=== PATIENT | female | born 1950 | race Caucasian/White ===

== ENCOUNTER 2016-10-30 06:01 | Emergency (ER) | payer MEDICARE, OTHER ==
[2016-10-30 06:27] VITALS: BP 121/66; PULSE 82; RESP 16; TEMP 98; O2SAT 99
--- NOTE | 2016-10-30 06:28 | ED PDOC ---
HPI: Headache Time Seen by Provider: 10/30/16 06:26 Chief Complaint (Nursing): Headache Chief Complaint (Provider): headache History Per: Patient History/Exam Limitations: no limitations Onset/Duration Of Symptoms: Hrs Current Symptoms Are (Timing): Still Present Additional Complaint(s): 66yo female with PMHx including HTN, anxiety presents to the ED with c/o headache since 1999 last night. Patient reports there was a gas leak in her house and thought it may be carbon monoxide. She subsequently developed a headache and became concerned. Took medication she has for leg pain and made headache resolve. No other medical complaints. Past Medical History Reviewed: Historical Data, Nursing Documentation, Vital Signs - Medical History PMH: Anxiety, Gall Bladder Disease, HTN Denies: Chronic Kidney Disease - Surgical History Surgical History: Cholecystectomy - Family History Family History: States: No Known Family Hx - Immunization History Hx Tetanus Toxoid Vaccination: No Hx Influenza Vaccination: No Hx Pneumococcal Vaccination: No - Home Medications Home Medications: Ambulatory Orders Medication Instructions Recorded Famotidine [Pepcid] 20 mg PO DAILY #20 tab 05/27/16 Ondansetron [Zofran Odt] 4 mg PO TID #10 odt 05/27/16 Ibuprofen [Motrin] 600 mg PO Q6 #20 tab 06/03/16 oxyCODONE/Acetaminophen [Percocet 1 ea PO Q6 PRN #5 tab 06/03/16 5/325 mg Tab] - Allergies Allergies/Adverse Reactions: Allergies Allergy/AdvReac Type Severity Reaction Status Date / Time antibiotics Allergy Uncoded 05/27/16 01:58 Review of Systems ROS Statement: Except As Marked, All Systems Reviewed And Found Negative Neurological: Positive for: Headache Physical Exam - Reviewed Nursing Documentation Reviewed: Yes Vital Signs Reviewed: Yes - Physical Exam Appears: Positive for: Well, No Acute Distress Head Exam: Positive for: ATRAUMATIC, NORMAL INSPECTION, NORMOCEPHALIC Skin: Positive for: Normal Color, Warm, Dry Eye Exam: Positive for: Normal appearance, EOMI, PERRL ENT: Positive for: Normal ENT Inspection Neck: Positive for: Normal, Painless ROM, Supple Cardiovascular/Chest: Positive for: Regular Rate, Rhythm. Negative for: Murmur , Tachycardia Respiratory: Positive for: Normal Breath Sounds. Negative for: Wheezing, Respiratory Distress Gastrointestinal/Abdominal: Positive for: Normal Exam, Bowel Sounds, Soft. Negative for: Tenderness Back: Positive for: Normal Inspection Extremity: Positive for: Normal ROM. Negative for: Deformity, Swelling Neurologic/Psych: Positive for: Alert, Oriented. Negative for: Motor/Sensory Deficits Medical Decision Making Medical Decision Makin: Impression: exposure to gas vs. carbon monoxide Plan: ABG reassess Patient s/o to Dr. Kelley at 0700 pending ABG and re-eval. Scribe Attestation: Documented by Gilma Lagos acting as a scribe for Ofe Del Cid MD. Provider Scribe Attestation: All medical record entries made by the Scribe were at my direction and personally dictated by me. I have reviewed the chart and agree that the record accurately reflects my personal performance of the history, physical exam, medical decision making, and the department course for this patient. I have also personally directed, reviewed, and agree with the discharge instructions and disposition. Disposition - Clinical Impression Clinical Impression: Headache, Exposure to natural gas - Patient ED Disposition Is Patient to be Admitted: Transfer of Care Counseled Patient/Family Regarding: Studies Performed, Diagnosis - Disposition Disposition: Transfer of Care Disposition Time: 07:00 Condition: FAIR Patient Signed Over To: Blaine Kelley Handoff Comments: pending ABG and re-eval
--- NOTE | 2016-10-30 07:11 | ED PDOC ---
- ECG O2 Sat by Pulse Oximetry: 99 Medical Decision Making Medical Decision Makin signed over by Claude Del Cid MD pending ABG, reeval. Disposition - Clinical Impression Clinical Impression: Headache, Natural gas exposure - POA Present On Arrival: None - Disposition Referrals: Zheng Ibarra MDE [Primary Care Provider] - Disposition: Routine/Home Disposition Time: 08:24 Condition: FAIR Instructions: Smoke Inhalation (ED) Additional Comments - Additional Comments Additional Comments: Scribe Attestation: Documented by Kelvin Del Rio acting as a scribe for Blaine Kelley MD. Provider Scribe Attestation: All medical record entries made by the Scribe were at my direction and personally dictated by me. I have reviewed the chart and agree that the record accurately reflects my personal performance of the history, physical exam, medical decision making, and the department course for this patient. I have also personally directed, reviewed, and agree with the discharge instructions and disposition.
[2016-10-30 07:56] LABS: VENOUS BLOOD GAS BASE EXCESS 3.7 mmol/L (0.0-2.0); VENOUS BLOOD GAS PCO2 60 mmHg (40-60); VENOUS BLOOD PH 7.33 (7.32-7.43)
[2016-10-30 09:14] LABS: BASO % 0.2 % (0.0-2.0); EOS # 0.1 K/uL (0.0-0.7); HEMATOCRIT 43.1 % (34.0-47.0); LYMPH # 1.8 K/uL (1.0-4.3); LYMPH % 18.5 % (20.0-40.0); MEAN CELL VOLUME 86.9 fl (81.0-99.0); MEAN CORPUSCULAR HEMOGLOBIN 29.1 pg (27.0-31.0); MEAN CORPUSCULAR HGB CONC 33.5 g/dL (33.0-37.0); MEAN PLATELET VOLUME 8.1 fl (7.2-11.7); MONO # 0.4 K/uL (0.0-0.8); MONO % 4.6 % (0.0-10.0); NEUT # 7.3 K/uL (1.8-7.0); NEUT % 75.7 % (50.0-75.0); NRBC % 0.1 % (0.0-0.0); WHITE BLOOD COUNT 9.6 K/uL (4.8-10.8)
[2016-10-30 09:21] LABS: ALB/GLOB RATIO 1.2 (1.0-2.1); ALKALINE PHOSPHATASE 69 U/L (38-126); ALT/SGPT 35 U/L (9-52); AST/SGOT 24 U/L (14-36); BILIRUBIN,TOTAL 0.6 mg/dl (0.2-1.3); BLOOD UREA NITROGEN 16 mg/dl (7-17); CALCIUM 9.5 mg/dL (8.4-10.2); CARBON DIOXIDE 26 mmol/L (22-30); CHLORIDE 106 mmol/L (98-107); GFR AFRICAN-AMERICAN > 60; GLUCOSE,RANDOM 84 mg/dL (65-105); POTASSIUM 3.9 MMOL/L (3.6-5.0); SODIUM 146 mmol/l (132-148); TOTAL PROTEIN 7.8 G/DL (6.3-8.2)
== END 2016-10-30 08:36 | disposition home or self-care (01) ==
LOC: H.ER 06:01
DX: R51 Headache (principal); Z57.5 Occupational exposure to toxic agents in other industries; I10 Essential (primary) hypertension

== ENCOUNTER 2018-01-07 08:45 | Inpatient (IN) | payer MEDICARE, OTHER ==
[2018-01-07] MEDS ORDERED: Oxycodone/Acetaminophen 5/325 mg Tab PO STA ×2 (09:36→14:19)
[2018-01-07] MEDS ORDERED: Oxycodone/Acetaminophen 5/325 mg Tab ONE (09:40)
--- NOTE | 2018-01-07 09:44 | ED PDOC ---
HPI: General Adult Time Seen by Provider: 01/07/18 09:07 Chief Complaint (Nursing): Upper Extremity Problem/Injury Chief Complaint (Provider): Upper Extremity Problem/Injury History Per: Patient History/Exam Limitations: no limitations Onset/Duration Of Symptoms: Hrs (x 2) Current Symptoms Are (Timing): Still Present Additional Complaint(s): 67 year old female with a history of HTN presents to the ED s/p mechanical fall complaining of right shoulder, wrist,foot and neck pain since 07:45 this morning. Patient reports she was painting on a small ladder when she lost her balance and fell off. She is able to ambulate on foot. Denies anti coagulant use , LOC, dizziness prior to fall, back pain and head injury. PMD: Dr. Liban Romero Past Medical History Reviewed: Historical Data, Nursing Documentation, Vital Signs Vital Signs: Last Vital Signs Temp 97.9 F 01/07/18 14:00 Pulse 81 01/07/18 14:00 Resp 14 01/07/18 14:00 BP 112/68 01/07/18 14:00 Pulse Ox 98 01/07/18 13:49 - Medical History PMH: Anxiety, Gall Bladder Disease, HTN Denies: Chronic Kidney Disease - Surgical History Surgical History: Cholecystectomy Other surgeries: hysterectomy and lipoid removal - Family History Family History: States: Unknown Family Hx - Immunization History Hx Tetanus Toxoid Vaccination: No Hx Influenza Vaccination: No Hx Pneumococcal Vaccination: No - Home Medications Home Medications: Ambulatory Orders Medication Instructions Recorded Alprazolam [Xanax] 0.5 mg PO Q12 PRN 01/07/18 Ibuprofen [Motrin Tab] 600 mg PO Q12 PRN 01/07/18 Lisinopril/Hydrochlorothiazide 1 tab PO DAILY 01/07/18 [Lisinopril-Hctz 10-12.5 mg Tab] - Allergies Allergies/Adverse Reactions: Allergies Allergy/AdvReac Type Severity Reaction Status Date / Time antibiotics Allergy Uncoded 05/27/16 01:58 Review of Systems ROS Statement: Except As Marked, All Systems Reviewed And Found Negative Musculoskeletal: Positive for: Neck Pain, Shoulder Pain (right ), Arm Pain ( wrist and forearm), Foot Pain (posterior ankle ) Physical Exam - Reviewed Nursing Documentation Reviewed: Yes Vital Signs Reviewed: Yes - Physical Exam Appears: Positive for: Non-toxic, No Acute Distress Head Exam: Positive for: ATRAUMATIC, NORMAL INSPECTION, NORMOCEPHALIC Skin: Positive for: Normal Color, Warm, Dry Eye Exam: Positive for: EOMI, Normal appearance, PERRL Neck: Positive for: Normal, Painless ROM, Supple Cardiovascular/Chest: Positive for: Regular Rate, Rhythm. Negative for: Murmur Respiratory: Positive for: Normal Breath Sounds. Negative for: Respiratory Distress Pulses-Radial (L): 2+ Pulses-Radial (R): 2+ Gastrointestinal/Abdominal: Positive for: Normal Exam, Soft. Negative for: Tenderness Extremity: Positive for: Normal ROM (fingers on right hadn are moving properly) , Tenderness (in posterior malleolus), Swelling (swelling and tenderness to right distal dorsum, forearm and wrist), Other (limited ROm in wrist secondary to pain). Negative for: Deformity (deformity and swelling in foot, wrist and right shoulder ) Neurologic/Psych: Positive for: Alert, Oriented. Negative for: Motor/Sensory Deficits - ECG O2 Sat by Pulse Oximetry: 98 Medical Decision Making Medical Decision Making: Time; 09:36 Impression; s/p mechanical fall. wrist injury, right shoulder injury, right foot injury. Differential diagnoses include but are not limited to: right distal forearm fracture, less likely wrist fracture or dislocation. Initial Plan: --Percocet 1 tab PO --Right shoulder x-ray --Right wrist x-ray --Right ankle x-ray Wrist x-ray reveals comminuted distal radial fracture, minimally displaced as well as a ulnar styloid fracture. Ankle x-ray and shoulder x-ray are negative for any significant abnormalities or displacements. Ankle x-ray FINDINGS: BONES: No acute fracture. JOINTS: Ankle mortise maintained. Talar dome intact SOFT TISSUES: Normal. OTHER FINDINGS: Achilles enthesophyte. Small inferior plantar calcaneal spur. IMPRESSION: No demonstrated acute fracture or dislocation. Shoulder x-ray FINDINGS: BONES: No acute fracture. JOINTS: Mild acromioclavicular joint degenerative change. SOFT TISSUES: Normal. OTHER FINDINGS: None. IMPRESSION: No demonstrated fracture or dislocation. Mild acromioclavicular joint degenerative changes. Wrist x-ray FINDINGS: BONES: Comminuted, impacted fracture of the distal radius with extension to the radiocarpal articulation. Minimally displaced ulnar styloid fracture. JOINTS: Normal. No dislocation. SOFT TISSUES: Circumferential wrist soft tissue swelling. OTHER FINDINGS: None. IMPRESSION: Comminuted, impacted intra-articular distal radial fracture. Minimally displaced ulnar styloid fracture. Time; 10:30 --Ct Upper extremity --Dr. Betancur was called for consult. Time: 12:31 --Spoke to Dr. Betancur and sent results of x-rays. Upper Extremity CT FINDINGS: There is a comminuted fracture of the distal right radius which is articular with the major fracture fragment displaced in the volar direction as well as carpal bones with that major fragment, indicating a volar Lowry's fracture. There is an avulsion fracture through the ulnar styloid process, minimally distally displaced. The remainder of the right radius is intact without fracture swells the ulna. No significant acute elbow findings with the carpal bones intact diffusely. Local soft tissue edema is prominent at the fracture site. IMPRESSION: Volar Lowry's fracture distal right radius with limited ulnar styloid fracture. Time: 13:08 --Dr. Betancur recommends admission. --Patient will be admitted to hospitalist, Dr. Montejo. Diagnosis is distal forearm fracture. Scribe Attestation: Documented by Winnie Smyth, acting as a scribe for Ofe Pederson MD Provider Scribe Attestation: All medical record entries made by the Scribe were at my direction and personally dictated by me. I have reviewed the chart and agree that the record accurately reflects my personal performance of the history, physical exam, medical decision making, and the department course for this patient. I have also personally directed, reviewed, and agree with the discharge instructions and disposition. Disposition - Clinical Impression Clinical Impression: Right forearm fracture - Patient ED Disposition Is Patient to be Admitted: Yes Discussed With : Stas Montejo Doctor Will See Patient In The: ED Counseled Patient/Family Regarding: Studies Performed, Diagnosis - Disposition Disposition Time: 13:10 Condition: FAIR - Pt Status Changed To: Hospital Disposition Of: Inpatient - Admit Certification Admit to Inpatient:: After my assessment, the patient will require hospitalization for at least two midnights. This is because of the severity of symptoms shown, intensity of services needed, and/or the medical risk in this patient being treated as an outpatient. - POA Present On Arrival: Falls Or Trauma
--- NOTE | 2018-01-07 10:44 | RAD ---
PROCEDURE: Right Ankle Radiographs. HISTORY: ankle pain injury COMPARISON: None FINDINGS: BONES: No acute fracture. JOINTS: Ankle mortise maintained. Talar dome intact SOFT TISSUES: Normal. OTHER FINDINGS: Achilles enthesophyte. Small inferior plantar calcaneal spur. IMPRESSION: No demonstrated acute fracture or dislocation.
--- NOTE | 2018-01-07 10:46 | RAD ---
PROCEDURE: Right Wrist Radiographs. HISTORY: right wrist swelling injury COMPARISON: Right wrist radiographs dated 06/03/2016. FINDINGS: BONES: Comminuted, impacted fracture of the distal radius with extension to the radiocarpal articulation. Minimally displaced ulnar styloid fracture. JOINTS: Normal. No dislocation. SOFT TISSUES: Circumferential wrist soft tissue swelling. OTHER FINDINGS: None. IMPRESSION: Comminuted, impacted intra-articular distal radial fracture. Minimally displaced ulnar styloid fracture.
--- NOTE | 2018-01-07 10:47 | RAD ---
PROCEDURE: Radiographs of the Right Shoulder HISTORY: shoulder pain injury COMPARISON: No prior. FINDINGS: BONES: No acute fracture. JOINTS: Mild acromioclavicular joint degenerative change. SOFT TISSUES: Normal. OTHER FINDINGS: None. IMPRESSION: No demonstrated fracture or dislocation. Mild acromioclavicular joint degenerative changes.
--- NOTE | 2018-01-07 12:52 | CT ---
PROCEDURE: RIGHT UPPER EXTREMITY CT WITHOUT CONTRAST HISTORY: right distal forearm fracture COMPARISON: Right wrist radiographs 01/07/2018. TECHNIQUE: A volumetric CT acquisition was performed through the right upper extremity from the right elbow to the proximal metacarpal bones without intravenous contrast. Reformatted datasets provided sagittal axial coronal planes including 3D cervix rendered series. FINDINGS: There is a comminuted fracture of the distal right radius which is articular with the major fracture fragment displaced in the volar direction as well as carpal bones with that major fragment, indicating a volar Lowry's fracture. There is an avulsion fracture through the ulnar styloid process, minimally distally displaced. The remainder of the right radius is intact without fracture swells the ulna. No significant acute elbow findings with the carpal bones intact diffusely. Local soft tissue edema is prominent at the fracture site. IMPRESSION: Volar Lowry's fracture distal right radius with limited ulnar styloid fracture.
--- NOTE | 2018-01-07 14:16 | RAD ---
HISTORY: medical COMPARISON: No prior. FINDINGS: LUNGS: No active pulmonary disease. PLEURA: Elevation/ eventration of the left hemidiaphragm. No significant pleural effusion identified, no pneumothorax apparent. CARDIOVASCULAR: Atherosclerotic aortic calcifications. Cardiomediastinal silhouette within normal limits. OSSEOUS STRUCTURES: Degenerative changes. VISUALIZED UPPER ABDOMEN: Normal. OTHER FINDINGS: None. IMPRESSION: No active disease.
--- NOTE | 2018-01-07 14:34 | CP.PCM.HP ---
History of Present Illness - History of Present Illness History of Present Illness: 67 yo female with history of HTN and Sleep Apnea came in because of pain on the right shoulder, wrist, foot and neck after falling this morning on a step ladder while painting a wall. Denied LOC or head injury. Present on Admission - Present on Admission Any Indicators Present on Admission: No History of DVT/PE: No History of Uncontrolled Diabetes: No Urinary Catheter: No Decubitus Ulcer Present: No Review of Systems - Review of Systems All systems: reviewed and no additional remarkable complaints except (aside from those mentioned above, 12 point system review were negative by me) Past Patient History - Tetanus Immunizations Tetanus Immunization: Unknown - Past Medical History & Family History Past Family History: Reviewed and not pertinent - Past Social History Smoking Status: Heavy Smoker > 10 Cigarettes Daily Chewing Tobacco Use: No Cigar Use: No Alcohol: None Drugs: Denies Home Situation {Lives}: With Family - CARDIAC Hx Hypertension: Yes - PULMONARY Hx Sleep Apnea: Yes - NEUROLOGICAL Hx Neurological Disorder: No - RENAL Hx Chronic Kidney Disease: No - GASTROINTESTINAL Hx Gall Bladder Disease: Yes - GENITOURINARY/GYNECOLOGICAL Other/Comment: hysterectomy - PSYCHIATRIC Hx Anxiety: Yes - SURGICAL HISTORY Hx Surgeries: Yes Hx Cholecystectomy: Yes Hx Hysterectomy: Yes - ANESTHESIA Hx Anesthesia: Yes Hx Anesthesia Reactions: No Hx Malignant Hyperthermia: No Meds Allergies/Adverse Reactions: Allergies Allergy/AdvReac Type Severity Reaction Status Date / Time antibiotics Allergy Uncoded 05/27/16 01:58 Physical Exam - Constitutional Appears: No Acute Distress - Head Exam Head Exam: ATRAUMATIC - Eye Exam Eye Exam: absent: Scleral icterus - ENT Exam ENT Exam: Mucous Membranes Moist - Neck Exam Neck exam: Negative for: Meningismus - Respiratory Exam Respiratory Exam: absent: Rales, Rhonchi, Wheezes, Respiratory Distress - Cardiovascular Exam Cardiovascular Exam: REGULAR RHYTHM, +S1, +S2 - GI/Abdominal Exam GI & Abdominal Exam: Soft. absent: Tenderness - Rectal Exam Rectal Exam: Deferred - Extremities Exam Extremities exam: Positive for: joint swelling (right wrist swelling with some deformity). Negative for: full ROM (limkited ROM of the right wrist) - Back Exam Back exam: absent: tenderness - Neurological Exam Neurological exam: Alert, Oriented x3 - Psychiatric Exam Psychiatric exam: Normal Affect - Skin Skin Exam: Dry, Intact Results - Vital Signs Recent Vital Signs: Last Vital Signs Temp 97.9 F 01/07/18 13:30 Pulse 81 01/07/18 13:30 Resp 14 01/07/18 13:30 BP 112/68 01/07/18 13:30 Pulse Ox 98 01/07/18 13:49 Assessment & Plan - Assessment and Plan (Free Text) Assessment: 67 yo female with history of HTN and Sleep Apnea came in because of pain on the right shoulder, wrist, foot and neck after falling this morning on a step ladder while painting a wall. Denied LOC or head injury. 1. Right Wrist Fracture Xray showed comminuted, impacted fracture of the distal radius Dr Betancur on consult for surgery in am prior to cardiac clearance from Dr Milan 2. HTN BP stable continue Lisinopril/HCTZ 3. Sleep Apnea BIPAP at bedtime
[2018-01-07 15:10] LABS: BASO % 0.3 % (0.0-2.0); EOS % 0.4 % (0.0-4.0); HEMOGLOBIN 13.5 g/dL (12.0-16.0); LYMPH # 1.8 K/uL (1.0-4.3); LYMPH % 19.6 % (20.0-40.0); MEAN CELL VOLUME 87.1 fl (81.0-99.0); MEAN CORPUSCULAR HEMOGLOBIN 29.5 pg (27.0-31.0); MEAN CORPUSCULAR HGB CONC 33.8 g/dL (33.0-37.0); MEAN PLATELET VOLUME 7.7 fl (7.2-11.7); MONO # 0.5 K/uL (0.0-0.8); NEUT # 6.7 K/uL (1.8-7.0); NEUT % 74.7 % (50.0-75.0); NRBC % 0.1 % (0.0-0.0); RBC 4.57 Mil/uL (3.80-5.20); RED CELL DISTRIBUTION WIDTH 14.6 % (11.5-14.5)
[2018-01-07 15:20] LABS: BLOOD UREA NITROGEN 22 mg/dl (7-17); CALCIUM 9.5 mg/dL (8.4-10.2); GFR AFRICAN-AMERICAN > 60; GFR NON-AFRICAN AMERICAN 55
--- NOTE | 2018-01-07 15:22 | CP.PCM.CON ---
History of Present Illness - History of Present Illness History of Present Illness: Orthopedic consult Patient is a 67 y/o LHD female with PMH of HTN, hyperlipidemia and sleep apnea presents to the ER c/o right wrist pain. She describes falling off the third step of her ladder while painting in her home, landing on her right outstretched hand. She sustained a right wrist fracture and Dr. Betancur was consulted for orthopedic evaluation. Currently her pain is moderate in severity , dull and aching in quality. The pain is located diffuse about the wrist and worsens with any movement of the RUE. It is associated with moderate swelling. The pain is alleviated with rest. She denies any radiation of pain, numbness or tingling. She also denies CP/SOB/N/V/D/fever/dysuria/melena. She takes ibuprofen frequently for chronic back issues, her last dose was yesterday. Review of Systems - Review of Systems All systems: reviewed and no additional remarkable complaints except Review of Systems: as per HPI Past Patient History - Tetanus Immunizations Tetanus Immunization: Unknown - Past Medical History & Family History Past Family History: Reviewed and not pertinent - Past Social History Smoking Status: Heavy Smoker > 10 Cigarettes Daily Chewing Tobacco Use: No Cigar Use: No Alcohol: None Drugs: Denies Home Situation {Lives}: With Family - CARDIAC Hx Hypertension: Yes - PULMONARY Hx Sleep Apnea: Yes - NEUROLOGICAL Hx Neurological Disorder: No - HEENT Hx HEENT Problems: No - RENAL Hx Chronic Kidney Disease: No - ENDOCRINE/METABOLIC Hx Endocrine Disorders: No - HEMATOLOGICAL/ONCOLOGICAL Hx Blood Disorders: No - INTEGUMENTARY Hx Dermatological Problems: No - MUSCULOSKELETAL/RHEUMATOLOGICAL Hx Musculoskeletal Disorders: No - GASTROINTESTINAL Hx Gall Bladder Disease: Yes - GENITOURINARY/GYNECOLOGICAL Other/Comment: hysterectomy - PSYCHIATRIC Hx Anxiety: Yes - SURGICAL HISTORY Hx Cholecystectomy: Yes Hx Hysterectomy: Yes ([facility]) - ANESTHESIA Hx Anesthesia: Yes Hx Anesthesia Reactions: No Hx Malignant Hyperthermia: No Meds Allergies/Adverse Reactions: Allergies Allergy/AdvReac Type Severity Reaction Status Date / Time antibiotics Allergy Uncoded 05/27/16 01:58 Physical Exam - Constitutional Appears: Well, No Acute Distress - Head Exam Head Exam: ATRAUMATIC, NORMOCEPHALIC - Eye Exam Eye Exam: EOMI, Normal appearance, PERRL - ENT Exam ENT Exam: Mucous Membranes Moist, Normal Exam - Respiratory Exam Respiratory Exam: Clear to Auscultation Bilateral, NORMAL BREATHING PATTERN - Cardiovascular Exam Cardiovascular Exam: REGULAR RHYTHM - GI/Abdominal Exam GI & Abdominal Exam: Normal Bowel Sounds, Soft - Extremities Exam Additional comments: R wrist: + diffuse tenderness about wrist, + guarding, + mod swelling at wrist, no lesions sensation intact MN/UN/RN motor intact MN/UN/RN 2 sec cap refill all fingers comps soft NT L wrist: no swelling, no tenderness, no lesions sensation intact MN/UN/RN motor intact MN/UN/RN 2 sec cap refill all fingers comps soft NT - Neurological Exam Neurological exam: Alert, Oriented x3 - Psychiatric Exam Psychiatric exam: Normal Affect, Normal Mood - Skin Skin Exam: Normal Color, Warm Results - Vital Signs Recent Vital Signs: Last Vital Signs Temp 97.9 F 01/07/18 14:00 Pulse 81 01/07/18 14:00 Resp 14 01/07/18 14:00 BP 112/68 01/07/18 14:00 Pulse Ox 98 01/07/18 15:15 - Labs Result Diagrams: 01/07/18 15:00 01/07/18 15:00 Labs: Laboratory Results - last 24 hr 01/07/18 01/07/18 15:00 15:00 WBC 9.0 RBC 4.57 Hgb 13.5 Hct 39.8 MCV 87.1 MCH 29.5 MCHC 33.8 RDW 14.6 H Plt Count 352 MPV 7.7 Neut % (Auto) 74.7 Lymph % (Auto) 19.6 L [place] % (Auto) 5.0 Eos % (Auto) 0.4 Baso % (Auto) 0.3 Neut # (Auto) 6.7 Lymph # (Auto) 1.8 [place] # (Auto) 0.5 Eos # (Auto) 0.0 Baso # (Auto) 0.0 Sodium 144 Potassium 3.7 Chloride 105 Carbon Dioxide 25 Anion Gap 18 BUN 22 H Creatinine 1.0 Est GFR ( Amer) > 60 Est GFR (Non-Af Amer) 55 Random Glucose 96 Calcium 9.5 Assessment & Plan (1) Fracture of right distal radius Assessment and Plan: Patient is a 67 y/o female with a right commminuted intra-articular distal radius and ulnar styloid fracture -Dr. Betancur proposes a right wrist fracture open reduction internal fixation in [place] tomorrow -NPO pMN -medical/cardiac clearance -long arm splint applied -ice and elevation -NWB RUE -above d/w Dr. Betancur in agreement Status: Acute (2) Fracture of styloid process of right ulna Status: Acute - Date & Time Date: 01/07/18 Time: 14:00 Procedures - Time-Out Type of Procedure: Application of long arm splint Site of Procedure: R wrist Correct Patient: Yes Correct Procedure: Yes Correct Site Marked: Yes PA/Tech: Kris Blanchard - Splinting Location: Right wrist Hand-Made Type: orthoglass Splint: sugar-tong Pre-Proc Neuro Vasc Exam: normal Post-Proc Neuro Vasc Exam: normal Radiology Interpretation - Radiation Protection Technician Radiation Protection Technician:: Radiologist - Notes: Notes:: Accession No. : [id number] Patient Name / ID : BRIDGER PONCE I / [id number] Exam Date : 01/07/2018 09:58:55 ( Approved ) Study Comment : Sex / Age : F / 67Y Creator : Raymond Esteban MD Dictator : Raymond Esteban MD Well Service Derrick Worker : Principal Android Developer : Raymond Esteban MD Approver2 : Report Date : 01/07/2018 10:44:55 My Comment : PROCEDURE: Right Wrist Radiographs. HISTORY: right wrist swelling injury COMPARISON: Right wrist radiographs dated 06/03/2016. FINDINGS: BONES: Comminuted, impacted fracture of the distal radius with extension to the radiocarpal articulation. Minimally displaced ulnar styloid fracture. JOINTS: Normal. No dislocation. SOFT TISSUES: Circumferential wrist soft tissue swelling. OTHER FINDINGS: None. IMPRESSION: Comminuted, impacted intra-articular distal radial fracture. Minimally displaced ulnar styloid fracture. - Radiology Interpretation #2 Interpretation: Accession No. : [id number] Patient Name / ID : BRIDGER PONCE I / [id number] Exam Date : 01/07/2018 11:20:41 ( Addendum_Approved ) Study Comment : Sex / Age : F / 67Y Creator : Suhas Batista MD Dictator : Suhas Batista MD Well Service Derrick Worker : Principal Android Developer : Suhas Batista MD Approver2 : Report Date : 01/07/2018 12:50:20 My Comment : ADDENDUM: Contrast Dose: None Radiation dose:Total exam DLP = 225.25 mGy-cm. This CT exam was performed using one or more of the following dose reduction techniques: Automated exposure control, adjustment of the mA and/or kV according to patient size, and/or use of iterative reconstruction technique. [ Addendum Report Added by Suhas Batista MD at 01/07/2018 12:52:40 ] PROCEDURE: RIGHT UPPER EXTREMITY CT WITHOUT CONTRAST HISTORY: right distal forearm fracture COMPARISON: Right wrist radiographs 01/07/2018. TECHNIQUE: A volumetric CT acquisition was performed through the right upper extremity from the right elbow to the proximal metacarpal bones without intravenous contrast. Reformatted datasets provided sagittal axial coronal planes including 3D cervix rendered series. FINDINGS: There is a comminuted fracture of the distal right radius which is articular with the major fracture fragment displaced in the volar direction as well as carpal bones with that major fragment, indicating a volar Lowry's fracture. There is an avulsion fracture through the ulnar styloid process, minimally distally displaced. The remainder of the right radius is intact without fracture swells the ulna. No significant acute elbow findings with the carpal bones intact diffusely. Local soft tissue edema is prominent at the fracture site. IMPRESSION: Volar Lowry's fracture distal right radius with limited ulnar styloid fracture.
[2018-01-07 15:26] LABS: INR 1.1 (0.9-1.2); PARTIAL THROMBOPLASTIN TIME 30.4 Seconds (25.6-37.1)
[2018-01-07] MEDS ORDERED: Oxycodone/Acetaminophen 5/325 mg Tab PO PRN (16:23)
--- NOTE | 2018-01-07 18:37 | CP.PCM.CON ---
History of Present Illness - History of Present Illness History of Present Illness: THE PATIENT IS A 67 YEAR OLD FEMALE WHO FELL OFF A STEP LADDER WHILE PAINTING AND SUSTAINED A RIGHT WRIST FRACTURE. CARDIOLOGY WAS ASKED TO SEE PER PRE- OPERATIVELY. SHE ALSO HAS A HISTORY OF HYPERTENSION TREATED WITH LISINOPRIL, HYPERLIPIDEMIA TREATED BY DIET AND SLEEP APNEA THAT SHE USES A MASK FOR. SHE DENIES ANY SYNCOPE, DIZZINESS, CHEST PAIN OR PALPITATIONS. SHE DENIES ANY KNOWN HEART PROBLEMS. Past Patient History - Tetanus Immunizations Tetanus Immunization: Unknown - Past Medical History & Family History Past Family History: Reviewed and not pertinent - Past Social History Smoking Status: Heavy Smoker > 10 Cigarettes Daily Chewing Tobacco Use: No Cigar Use: No Alcohol: None Drugs: Denies Home Situation {Lives}: With Family - CARDIAC Hx Hypertension: Yes - PULMONARY Hx Sleep Apnea: Yes - NEUROLOGICAL Hx Neurological Disorder: No - HEENT Hx HEENT Problems: No - RENAL Hx Chronic Kidney Disease: No - ENDOCRINE/METABOLIC Hx Endocrine Disorders: No - HEMATOLOGICAL/ONCOLOGICAL Hx Blood Disorders: No - INTEGUMENTARY Hx Dermatological Problems: No - MUSCULOSKELETAL/RHEUMATOLOGICAL Hx Musculoskeletal Disorders: No - GASTROINTESTINAL Hx Gall Bladder Disease: Yes - GENITOURINARY/GYNECOLOGICAL Other/Comment: hysterectomy - PSYCHIATRIC Hx Anxiety: Yes - SURGICAL HISTORY Hx Cholecystectomy: Yes Hx Hysterectomy: Yes ([facility]) - ANESTHESIA Hx Anesthesia: Yes Hx Anesthesia Reactions: No Hx Malignant Hyperthermia: No Meds Allergies/Adverse Reactions: Allergies Allergy/AdvReac Type Severity Reaction Status Date / Time antibiotics Allergy Uncoded 05/27/16 01:58 - Medications Medications: Current Medications Alprazolam (Xanax) 0.5 mg PO Q12 PRN PRN Reason: Anxiety Hydrochlorothiazide (Microzide) 12.5 mg PO DAILY [facility] Lisinopril (Zestril) 10 mg PO DAILY [facility] Oxycodone/Acetaminophen (Percocet 5/325 Mg Tab) 1 tab PO Q4 PRN PRN Reason: Pain, moderate (4-7) Stop: 01/10/18 16:24 Physical Exam - Respiratory Exam Respiratory Exam: Clear to Auscultation Bilateral - Cardiovascular Exam Cardiovascular Exam: REGULAR RHYTHM, +S1, +S2 - Extremities Exam Additional comments: RIGHT WRIST IN A BANDAGE - Additional Findings Additional findings: EKG SINUS RHYTHM CXR NAD X-RAYS OF RIGHT WRIST WITH DISTAK RADIAL FRACTURE LABS NOTED Results - Vital Signs Recent Vital Signs: Last Vital Signs Temp 97.9 F 01/07/18 14:00 Pulse 81 01/07/18 14:00 Resp 14 01/07/18 14:00 BP 112/68 01/07/18 14:00 Pulse Ox 98 01/07/18 15:15 - Labs Result Diagrams: 01/07/18 15:00 01/07/18 15:00 Labs: Laboratory Results - last 24 hr 01/07/18 01/07/18 01/07/18 15:00 15:00 15:00 WBC 9.0 RBC 4.57 Hgb 13.5 Hct 39.8 MCV 87.1 MCH 29.5 MCHC 33.8 RDW 14.6 H Plt Count 352 MPV 7.7 Neut % (Auto) 74.7 Lymph % (Auto) 19.6 L [place] % (Auto) 5.0 Eos % (Auto) 0.4 Baso % (Auto) 0.3 Neut # (Auto) 6.7 Lymph # (Auto) 1.8 [place] # (Auto) 0.5 Eos # (Auto) 0.0 Baso # (Auto) 0.0 PT 12.0 INR 1.1 APTT 30.4 Sodium 144 Potassium 3.7 Chloride 105 Carbon Dioxide 25 Anion Gap 18 BUN 22 H Creatinine 1.0 Est GFR ( Amer) > 60 Est GFR (Non-Af Amer) 55 POC Glucose (mg/dL) Random Glucose 96 Calcium 9.5 Blood Type Antibody Screen BBK History Checked 01/07/18 01/07/18 15:23 16:00 WBC RBC Hgb Hct MCV MCH MCHC RDW Plt Count MPV Neut % (Auto) Lymph % (Auto) [place] % (Auto) Eos % (Auto) Baso % (Auto) Neut # (Auto) Lymph # (Auto) [place] # (Auto) Eos # (Auto) Baso # (Auto) PT INR APTT Sodium Potassium Chloride Carbon Dioxide Anion Gap BUN Creatinine Est GFR ( Amer) Est GFR (Non-Af Amer) POC Glucose (mg/dL) 81 Random Glucose Calcium Blood Type O POSITIVE Antibody Screen Negative BBK History Checked No verified bt Assessment & Plan - Assessment and Plan (Free Text) Assessment: FALL WITH RIGHT WRIST FRACTURE HYPERTENSION SLEEP APNEA Plan: THE PATIENT IS CLEARED FOR HER WRIST SURGERY TOMORROW CONTINUE LISINOPRIL
[2018-01-08 06:43] LABS: MEAN CELL VOLUME 86.6 fl (81.0-99.0); MEAN CORPUSCULAR HEMOGLOBIN 29.3 pg (27.0-31.0); MEAN CORPUSCULAR HGB CONC 33.8 g/dL (33.0-37.0); RBC 4.42 Mil/uL (3.80-5.20); RED CELL DISTRIBUTION WIDTH 14.6 % (11.5-14.5); WHITE BLOOD COUNT 7.4 K/uL (4.8-10.8)
[2018-01-08 06:46] LABS: BLOOD UREA NITROGEN 23 mg/dl (7-17); CALCIUM 8.8 mg/dL (8.4-10.2); GFR AFRICAN-AMERICAN > 60; GFR NON-AFRICAN AMERICAN > 60
--- NOTE | 2018-01-08 09:45 | CP.PCM.PN ---
Subjective - Date & Time of Evaluation Date of Evaluation: 01/08/18 Time of Evaluation: 08:00 - Subjective Subjective: NO NEW COMPLAINTS Objective - Vital Signs/Intake and Output Vital Signs (last 24 hours): Temp Pulse Resp BP Pulse Ox 98.2 F 65 20 124/78 96 01/08/18 08:27 01/08/18 08:27 01/08/18 08:27 01/08/18 08:27 01/08/18 08:27 - Medications Medications: Current Medications Alprazolam (Xanax) 0.5 mg PO Q12 PRN PRN Reason: Anxiety Hydrochlorothiazide (Microzide) 12.5 mg PO DAILY [facility] Last Admin: 01/08/18 09:12 Dose: Not Given Lisinopril (Zestril) 10 mg PO DAILY [facility] Last Admin: 01/08/18 09:12 Dose: Not Given Morphine Sulfate (Morphine) 1 mg IVP Q4 PRN PRN Reason: Pain, Mild (1-3) Oxycodone/Acetaminophen (Percocet 5/325 Mg Tab) 1 tab PO Q4 PRN PRN Reason: Pain, moderate (4-7) Stop: 01/10/18 16:24 Last Admin: 01/07/18 20:58 Dose: 1 tab - Labs Labs: 01/08/18 06:20 01/08/18 06:20 PT 12.0 Seconds (9.8-13.1) 01/07/18 15:00 INR 1.1 (0.9-1.2) 01/07/18 15:00 APTT 30.4 Seconds (25.6-37.1) 01/07/18 15:00 - Respiratory Exam Respiratory Exam: Clear to Ausculation Bilateral - Cardiovascular Exam Cardiovascular Exam: REGULAR RHYTHM, +S1, +S2 Assessment and Plan - Assessment and Plan (Free Text) Assessment: FALL WITH RIGHT WRIST FRACTURE HYPERTENSION SLEEP APNEA Plan: FOR SURGERY TODAY
[2018-01-08] MEDS ORDERED: Lidocaine 2% MPF (5 ml) Inj ONE (10:30)
[2018-01-08] MEDS ORDERED: Bacitracin Ointment 30 GM TUBE ONE (10:30)
[2018-01-08] MEDS ORDERED: Midazolam 2 MG/2 ML VIAL ONE (10:37)
[2018-01-08] MEDS ORDERED: Propofol 10 mg/ml Inj (20 ML) ONE (10:37)
[2018-01-08] MEDS ORDERED: Lactated Ringer's 1,000 ML IV ONE (10:40)
[2018-01-08] MEDS ORDERED: Dexamethasone 4 mg/1 ml ONE (10:56)
--- NOTE | 2018-01-08 11:40 | CARD ---
APPROVED REPORT EKG Measurement Heart [id number] <Conclusion> Sinus bradycardia Otherwise normal ECG
[2018-01-08] MEDS ORDERED: Bacitracin OINT 15GM TOP ONE (12:25)
[2018-01-08] MEDS ORDERED: HYDROmorphone 0.5 mg/0.5 ml ISec IVP PRN (12:40)
[2018-01-08] MEDS ORDERED: Lactated Ringer's 1,000 ML IV SCH ×2 (12:45)
--- NOTE | 2018-01-08 13:59 | RAD ---
PROCEDURE: Radiographs of the Right Forearm HISTORY: s/p R wrist ex fix COMPARISON: Wrist x-ray 01/07/2018. TECHNIQUE: Frontal and lateral views obtained. FINDINGS: BONES: Internal fixation comminuted distal radial fracture. Minimally displaced ulnar styloid process fracture. External fixators are seen through the 2nd metacarpal and mid radial diaphysis. Near anatomic alignment has been achieved. No additional fracture. JOINT SPACES: Unremarkable. OTHER FINDINGS: None. IMPRESSION: Status post ORIF distal radial fracture with external fixator as above.
--- NOTE | 2018-01-08 14:44 | PCM.SURG1 ---
Surgeon's Initial Post Op Note - Surgeon's Notes Surgeon: Pipe Service Desk Lead: ERIN Rajput Type of Anesthesia: General Endo Anesthesia Administered By: Dr Erich CRUZ Pre-Operative Diagnosis: displaced.comminuted distal radius frac ture R wrist Operative Findings: as above Post-Operative Diagnosis: as above Operation Performed: closed reduction dipalced diatal radius fx R wrist/ percutaneoius pin fixation. application external fixator. positiong of fluor/ interpretation of video images Specimen/Specimens Removed: n/a Estimated Blood Loss: EBL {In ML}: 5 Blood Products Given: N/A Drains Used: No Drains Post-Op Condition: Good Date of Surgery/Procedure: 01/08/18 Time of Surgery/Procedure: 11:45 (time in room/anaersthesia indcution time 10:40 )
--- NOTE | 2018-01-08 14:46 | PCM.ANESB8 ---
Axillary Block - Adductor Canal Block Date of Procedure: 01/08/18 Anesthiologist: Luis Enrique Tong Pre-Procedure Diagnosis: ext fix of right radius fx Post-Procedure Diagnosis: same Procedure Performed: Right Axillary Block of the Brachial Plexus for postop pain control - Procedure Axillary Block: The procedure was explained to the patient that it is for the post-operative pain management. Consent was obtained after a thorough discussion with the patient regarding the benefits and possible complications of local anesthetic block of the brachial plexus at the axillary area. Standard monitors were applied. Time-out was held with the nurse to confirm the correct surgical side and appropriate block. After applying supplemental oxygen by nasal cannula and administering IV Sedation, patient's arm was abducted 90 degrees and forearm flexed 90 degrees on the same operative side. The axillary and upper arm was prepped with Chloraprep solution. The ultrasound transducer was then applied to the skin in the transverse plane and the brachial plexus was visualized surrounding the axillary artery. After thorough identification, 1% Lidocaine was injected subcutaneously for topical anesthesia. At this point, a #21 gauge Stimuplex 4-inch needle was inserted lateral to the ultrasound transducer and superior to the arm in-plane towards the axillary artery. Needle advancement was performed carefully under ultrasound visualization. Nerve stimulator was used and twitch of the affected extremity including fingers, hand, wrist and elbow was obtained at current of 0.3 MA. After repeated negative aspiration, _25__ cc of _0.5___% _0.25 was injected and this was followed with __5___ cc of _0.25___% _bupiv . Under ultrasound guidance the local anesthetics were observed surrounding the cords of the brachial plexus. The needle was removed intact and sterile dressing was applied. The patient had stable vital signs, was conscious and in no apparent distress. The patient tolerated the axillary block of the brachial plexus well with stable vital signs.
--- NOTE | 2018-01-08 16:36 | RAD ---
PROCEDURE: Intraoperative fluoroscopy HISTORY: RIGHT WRIST COMPARISON: Not available TECHNIQUE: Intraoperative fluoroscopy was provided for ORIF of comminuted distal radial fracture. Total time of fluoroscopy was 42.3 seconds. FINDINGS: Multiple fluoroscopic spot films are submitted. These demonstrate progressive stages in internal fixation of the distal radial fracture and placement of external fixation. IMPRESSION: Fluoroscopy provided.
--- NOTE | 2018-01-08 18:04 | CP.PCM.DIS ---
Provider - Provider Date of Admission: 01/07/18 13:10 Attending physician: Stas Montejo MD Consults: Dr Pipe [place] Time Spent in preparation of Discharge (in minutes): 25 Diagnosis - Discharge Diagnosis (1) Fracture of right distal radius Status: Acute Comment: had closed reduction with internal fixation and did well (2) HTN (hypertension) Status: Chronic Comment: BP controlled. continue Lisinopril/HCTZ Hospital Course - Lab Results Lab Results: Most Recent Lab Values WBC 7.4 K/uL (4.8-10.8) 01/08/18 06:20 RBC 4.42 Mil/uL (3.80-5.20) 01/08/18 06:20 Hgb 13.0 g/dL (12.0-16.0) 01/08/18 06:20 Hct 38.3 % (34.0-47.0) 01/08/18 06:20 MCV 86.6 fl (81.0-99.0) 01/08/18 06:20 MCH 29.3 pg (27.0-31.0) 01/08/18 06:20 MCHC 33.8 g/dL (33.0-37.0) 01/08/18 06:20 RDW 14.6 % (11.5-14.5) H 01/08/18 06:20 Plt Count 336 K/uL (130-400) 01/08/18 06:20 MPV 7.7 fl (7.2-11.7) 01/07/18 15:00 Neut % (Auto) 74.7 % (50.0-75.0) 01/07/18 15:00 Lymph % (Auto) 19.6 % (20.0-40.0) L 01/07/18 15:00 [place] % (Auto) 5.0 % (0.0-10.0) 01/07/18 15:00 Eos % (Auto) 0.4 % (0.0-4.0) 01/07/18 15:00 Baso % (Auto) 0.3 % (0.0-2.0) 01/07/18 15:00 Neut # (Auto) 6.7 K/uL (1.8-7.0) 01/07/18 15:00 Lymph # (Auto) 1.8 K/uL (1.0-4.3) 01/07/18 15:00 [place] # (Auto) 0.5 K/uL (0.0-0.8) 01/07/18 15:00 Eos # (Auto) 0.0 K/uL (0.0-0.7) 01/07/18 15:00 Baso # (Auto) 0.0 K/uL (0.0-0.2) 01/07/18 15:00 PT 12.0 Seconds (9.8-13.1) 01/07/18 15:00 INR 1.1 (0.9-1.2) 01/07/18 15:00 APTT 30.4 Seconds (25.6-37.1) 01/07/18 15:00 Sodium 145 mmol/l (132-148) 01/08/18 06:20 Potassium 3.8 MMOL/L (3.6-5.0) 01/08/18 06:20 Chloride 110 mmol/L (98-107) H 01/08/18 06:20 Carbon Dioxide 25 mmol/L (22-30) 01/08/18 06:20 Anion Gap 14 (10-20) 01/08/18 06:20 BUN 23 mg/dl (7-17) H 01/08/18 06:20 Creatinine 0.9 mg/dl (0.7-1.2) 01/08/18 06:20 Est GFR ( Amer) > 60 01/08/18 06:20 Est GFR (Non-Af Amer) > 60 01/08/18 06:20 POC Glucose (mg/dL) 81 mg/dL (65-110) 01/07/18 15:23 Random Glucose 105 mg/dL (65-105) 01/08/18 06:20 Calcium 8.8 mg/dL (8.4-10.2) 01/08/18 06:20 25-OH Vitamin D Total 26.0 NG/ML (30.0-100.0) L 01/08/18 08:31 Blood Type O POSITIVE 01/07/18 16:00 Antibody Screen Negative 01/07/18 16:00 BBK History Checked No verified bt 01/07/18 16:00 - Hospital Course Hospital Course: 67 yo female with history of HTN and Sleep Apnea came in because of pain on the right shoulder, wrist, foot and neck after falling this morning on a step ladder while painting a wall. Xray of the left wrist showed comminuted, impacted fracture of the distal radius. Closed Reduction with External Fixation was done earlier today. Patient tolerated procedure and now is ready for discharge. She will follow up with Dr Betancur as outpatient. Discharge Exam - Head Exam Head Exam: ATRAUMATIC, NORMOCEPHALIC - Eye Exam Eye Exam: absent: Scleral icterus - ENT Exam ENT Exam: Mucous Membranes Moist - Respiratory Exam Respiratory Exam: absent: Rales, Rhonchi, Wheezes, Respiratory Distress - Cardiovascular Exam Cardiovascular Exam: REGULAR RHYTHM, +S1, +S2 - GI/Abdominal Exam GI & Abdominal Exam: Soft. absent: Tenderness - Rectal Exam Rectal Exam: Deferred - Back Exam Back exam: NORMAL INSPECTION - Neurological Exam Neurological exam: Alert, Oriented x3 - Psychiatric Exam Psychiatric exam: Normal Affect - Skin Skin Exam: Dry, Intact Discharge Plan - Discharge Medications Prescriptions: oxyCODONE/Acetaminophen [Percocet 5/325 mg Tab] 1 ea PO Q4 PRN #12 tab PRN Reason: Pain, Moderate (4-7) - Follow Up Plan Condition: FAIR Disposition: HOME/ ROUTINE Instructions: Wrist Fracture (DC), Open Reduction and Internal Fixation Surgery (DC) Additional Instructions: follow up with primary MD and orthopedist 1 week or as indicated by MD Referrals: Ken Betancur III, MD [Staff Provider] - Liban Romero MD [Family Provider] -
[2018-01-08 20:02] VITALS: BP 127/77; PULSE 82; RESP 18; TEMP 98.4; O2SAT 95
--- NOTE | 2018-01-09 15:25 | OP ---
PROCEDURE DATE: 01/08/2018 LOCATION: [facility]. Right wrist. PREOPERATIVE DIAGNOSIS: Displaced comminuted right distal radius fracture. POSTOPERATIVE DIAGNOSIS: Displaced comminuted right distal radius fracture. OPERATIVE FINDINGS: As above. SURGEON: Ken Betancur MD PATIENT ATTENDANT: Jackie Canseco, certified registered nursing first aid nurse. OPERATION PERFORMED: 1. Closed reduction of displaced distal radius fracture and percutaneous pin fixation. 2. Application of external fixator. 3. Positioning of fluoroscope and interpretation of video images. BLOOD LOSS: 5 mL. BLOOD PRODUCTS: No blood products given. POSTOPERATIVE CONDITION: Stable. PATIENT ROOM: 1040. SURGERY TIME AND INCISION TIME: 11:45. OPERATIVE INDICATION: Rochelle Murphy is a 67-year-old woman who sustained a fall on an outstretched hand, has severe pain and restricted range of motion. The patient presents with marked discomfort and presents to the emergency room, was admitted. Pros, cons, risks and benefits of various treatment options were discussed. Possibility of mechanical failure, infection, thromboembolic disease, secondary or tertiary surgery was discussed. The patient can no longer withstand the discomfort and wished the surgery to be accomplished. Possibility of stiffness, nerve injury, bleeding, etc. were discussed. Infection, secondary surgery was assured for pin and the external fixator removal. OPERATIVE PROCEDURE: After having obtained informed consent in the above fashion, after satisfactory induction of general endotracheal anesthesia by Dr. Erich Tong, after having identified the side, site and procedure and a critical pause/time-out, the patient identified as Rochelle Murphy in the supine position with all bony prominences well padded, the right upper extremity was prepped and free draped in the usual fashion for upper extremity surgery. Under the surgeon's direction, the fluoroscope was positioned horizontally. Video images were generated, therapeutic decisions were made therefrom. This having been accomplished, a 20-pound weight was placed across the brachium taking great care that is well padded to afford traction. The reduction was accomplished by exacerbating the deformity and then reversing the deformity. The fracture was found to be extremely comminuted. The radial styloid was located under image intensification. After having obtained informed consent, after the satisfactory induction of the anesthetic, after sterilely prepping and draping, after having identified the side, site and procedure and critical pause/time-out, the distal radius identified. Using a #11 blade, a small incision was accomplished. A 1.6 mm K-wires were placed across the fracture to the radial shaft. This was accomplished with one pin more in line with the joint line to gather the comminution. Two additional pins were placed across the fracture site to the radial shaft. Verification of position was offered on AP and lateral image intensification views and the position of the reduction and fixation was found to be acceptable. At this point in time on the dorsoradial aspect of the second metacarpal, two incisions were accomplished using #11 blade and taking great care to avoid injury and tethering of the lumbrical muscles, two fixation pins for the external fixator were placed on the metacarpal on the radial shaft. The brachioradialis was identified and just proximal to the brachioradialis, two additional pins were placed again to support the external fixator bar. The pins were introduced. Verification of position was offered on AP and lateral image intensification views. The supporting clamps were placed and tightened in the appropriate position. The carbon lacy external fixator was applied and all joints were tightened. The wound was thoroughly irrigated. Closure of the radial styloid incision was with Vicryl and nylon, closure of the other incisions was with nylon. Compression dressing was applied. Verification of position was offered on AP and lateral image intensification views. Position was found to be acceptable. Ken Betancur MD
== END 2018-01-08 19:10 | disposition home health service (06) | DRG 512 ==
LOC: H.ER 08:45 → H.ERHOLD 13:10 → H.MEDSURG1 16:08
PROC: 3E0T3BZ Introduction of Anesthetic Agent into Peripheral Nerves and Plexi, Percutaneous Approach (ICD-10-PCS; 2018-01-08)
PROC: 3E0T33Z Introduction of Anti-inflammatory into Peripheral Nerves and Plexi, Percutaneous Approach (ICD-10-PCS; 2018-01-08)
PROC: 0PSH34Z Reposition Right Radius with Internal Fixation Device, Percutaneous Approach (ICD-10-PCS; principal; 2018-01-08 12:45)
PROC: 0PHH35Z Insertion of External Fixation Device into Right Radius, Percutaneous Approach (ICD-10-PCS; 2018-01-08 12:45)
DX: S52.561A Barton's fracture of right radius, initial encounter for closed fracture (principal); S52.611A Displaced fracture of right ulna styloid process, initial encounter for closed fracture; I10 Essential (primary) hypertension; E78.5 Hyperlipidemia, unspecified; G47.30 Sleep apnea, unspecified; F41.9 Anxiety disorder, unspecified; F17.210 Nicotine dependence, cigarettes, uncomplicated; W11.XXXA Fall on and from ladder, initial encounter; Z88.1 Allergy status to other antibiotic agents; Z90.49 Acquired absence of other specified parts of digestive tract; Z90.710 Acquired absence of both cervix and uterus; Y92.009 Unspecified place in unspecified non-institutional (private) residence as the place of occurrence of the external cause

== ENCOUNTER 2018-01-26 13:52 | Emergency (ER) | payer MEDICARE, OTHER ==
[2018-01-26 14:12] VITALS: BP 139/78; PULSE 80; TEMP 98; O2SAT 98
[2018-01-26 14:13] VITALS: BMI 37.5
[2018-01-26] MEDS ORDERED: Oxycodone/Acetaminophen 5/325 mg Tab PO STA (14:39)
--- NOTE | 2018-01-26 14:54 | ED PDOC ---
Upper Extremity Pain/Injury Time Seen by Provider: 01/26/18 14:16 Chief Complaint (Nursing): Upper Extremity Problem/Injury Chief Complaint (Provider): Upper Extremity Problem/Injury History Per: Patient History/Exam Limitations: no limitations Onset/Duration Of Symptoms: Days (x2) Additional Complaint(s): Patient is a 67 y/o female with past medical history of hypertension who presents to the ED with complaints of right wrist pain. Patient states that she broke her wrist x3 weeks ago after falling off a ladder and had an ORIF done by Dr. Betancur x2 weeks ago on 01/09/18. She reports that pain has been well controlled until x2 days ago on Saturday when she followed up with Dr. Betancur for suture removal. Since then the pain to the wrist has increased. She states that she took ibuprofen 800 mg at 7 am today and subsequently Tylenol at 11 am. Patient is left hand dominant and denies any new injury or trauma since the procedure. PMD: Liban Romero Past Medical History Reviewed: Historical Data, Nursing Documentation, Vital Signs Vital Signs: Last Vital Signs Temp 98 F 01/26/18 14:12 Pulse 80 01/26/18 14:12 Resp BP 139/78 01/26/18 14:12 Pulse Ox 98 01/26/18 14:12 - Medical History PMH: Anxiety, Gall Bladder Disease, HTN, Sleep Apnea Denies: Chronic Kidney Disease - Surgical History Surgical History: Cholecystectomy Other surgeries: Hysterectomy - Family History Family History: States: Unknown Family Hx - Social History Current smoker - smoking cessation education provided: Yes SMOKER/PACKS PER DAY:: 1 Alcohol: None Drugs: Denies - Home Medications Home Medications: Ambulatory Orders Medication Instructions Recorded Alprazolam [Xanax] 0.5 mg PO Q12 PRN 01/07/18 Ibuprofen [Motrin Tab] 600 mg PO Q12 PRN 01/07/18 Lisinopril/Hydrochlorothiazide 1 tab PO DAILY 01/07/18 [Lisinopril-Hctz 10-12.5 mg Tab] oxyCODONE/Acetaminophen [Percocet 1 ea PO Q4 PRN #12 tab 01/08/18 5/325 mg Tab] traMADol [Ultram] 50 mg PO Q6 PRN #12 tab 01/26/18 - Allergies Allergies/Adverse Reactions: Allergies Allergy/AdvReac Type Severity Reaction Status Date / Time antibiotics Allergy Uncoded 05/27/16 01:58 Review of Systems ROS Statement: Except As Marked, All Systems Reviewed And Found Negative Constitutional: Negative for: Fever Musculoskeletal: Positive for: Arm Pain (right wrist) Physical Exam - Reviewed Nursing Documentation Reviewed: Yes Vital Signs Reviewed: Yes - Physical Exam Comments: GENERAL APPEARANCE: Patient is awake, alert, oriented x 3, in no acute distress. SKIN: Warm, dry; (-) cyanosis. NECK: Supple, FROM ENT: Mucus membranes moist. Airway patent (-) stridor. WRIST: External lacy fixated to right wrist. Incisions clean, dry. (-) erythema, (-) warmth (-) evidence of infection/cellulitis. (+) diffuse tenderness of wrist and distal forearm with small effusion. Sensation and capillary refill intact. (+) distal pulses. CHEST AND RESPIRATORY: (-) rales, (-) rhonchi, (-) wheezes; breath sounds equal bilaterally. Speaking in full sentences, respirations even and nonlabored. HEART AND CARDIOVASCULAR: (-) irregularity; (-) murmur, (-) gallop. NEURO AND PSYCH: Mental status as above. Gait steady speech clear. (-) facial asymmetry - ECG O2 Sat by Pulse Oximetry: 98 (RA) Pulse Ox Interpretation: Normal Medical Decision Making Medical Decision Making: Time: 14:40 Initial Impression: Pain at surgical site, Wrist fracture Initial Plan: --Consult Dr. Betancur --Percocet 5/325 mg 1 tab PO (Patient is not driving home) --Re-evaluation Time:14:45 Awaiting call back from Dr. Betancur Time: 15:[address] Betancur at this time after multiple calls placed. Patient and daughter at bedside report dramatically improved pain at this time and do not want to wait for consult. Patient is requesting to go home at this time. On exam, patient remains AAOx3, in no acute distress. Neck is supple, lungs CTA , cardiac RRR, abdomen is soft and non-tender, neuro exam shows no focal findings. VSS, stable for discharge. Diagnostic results d/w the patient in great detail. Dx of pain at surgical site , wrist fracture d/w the patient. Based on history, exam and diagnostic results plan will be for discharge and outpatient follow up. Advised to follow up with primary care physician/ortho (Pipe) in 1-2 days without fail. Advised to take medication as prescribed. Return to the emergency room at any time for any new or worsening symptoms. Patient states she fully agrees with and understands discharge instructions. States that she agrees with the plan and disposition. Verbalized and repeated discharge instructions and plan. I have given the patient opportunity to ask any additional questions. Scribe Attestation: Documented by Isaiah Schuster, acting as a scribe for Nicky Alexander PA-C Provider Scribe Attestation: All medical record entries made by the Scribe were at my direction and personally dictated by me. I have reviewed the chart and agree that the record accurately reflects my personal performance of the history, physical exam, medical decision making, and the department course for this patient. I have also personally directed, reviewed, and agree with the discharge instructions and disposition. Disposition - Clinical Impression Clinical Impression: Fracture of wrist, Pain at surgical site - Patient ED Disposition Is Patient to be Admitted: No Counseled Patient/Family Regarding: Diagnosis, Need For Followup, Rx Given - Disposition Referrals: Ken Betancur III, MD [Staff Provider] - Disposition: Routine/Home Disposition Time: 15:37 Condition: STABLE Additional Instructions: FOLLOW UP WITH ORTHO AT SOON POSSIBLE. RETURN TO ED WITH ANY NEW OR WORSENING SYMPTOMS. CONTINUE USE OF IBUPROFEN AT HOME AND USE NEW RX (TRAMADOL) FOR BREAK THROUGH PAIN. Prescriptions: traMADol [Ultram] 50 mg PO Q6 PRN #12 tab PRN Reason: Pain, Severe (8-10) Instructions: Wrist Fracture (DC), Postoperative Pain (DC), Managing Pain After Surgery Forms: [facility] (Malaysian) Print Language: ARMENIAN
== END 2018-01-26 15:50 | disposition home or self-care (01) ==
LOC: H.ER 13:52
DX: G89.18 Other acute postprocedural pain (principal); F41.9 Anxiety disorder, unspecified; I10 Essential (primary) hypertension

== ENCOUNTER 2018-03-10 06:27 | Day surgery (SDC) | payer MEDICARE, OTHER ==
[2018-03-05 10:31] VITALS: BMI 36.6
[2018-03-10] MEDS ORDERED: Propofol 10 mg/ml Inj (20 ML) ONE (06:47)
[2018-03-10] MEDS ORDERED: Sevoflurane - Inhalation Anesthetic Liq (250 ml) ONE (06:52)
[2018-03-10] MEDS ORDERED: Phenylephrine 10 mg/ml Inj ONE (06:55)
[2018-03-10] MEDS ORDERED: Dexamethasone 4 mg/1 ml IVP PRN (07:10)
[2018-03-10] MEDS ORDERED: DiphenhydrAMINE 50 mg/ml Inj IVP PRN (07:10)
[2018-03-10] MEDS ORDERED: HYDROmorphone 0.5 mg/0.5 ml ISec IVP PRN (07:10)
[2018-03-10] MEDS ORDERED: Lactated Ringer's 1,000 ML IV SCH (07:15)
[2018-03-10] MEDS ORDERED: Succinylcholine 200 mg/10 ml Inj IV ONE (07:27)
--- NOTE | 2018-03-10 07:29 | CP.SDSHP ---
Same Day Surgery H & P - History Proposed Procedure: Removal of external fixator, right wrist Pre-Op Diagnosis: Right distal radius fracture s/p application of external fixator 01/08/2018 - Allergies Allergies: Allergies antibiotics Allergy (Uncoded 03/10/18 07:23) RASH - Physical Exam Vital Signs: Vital Signs 03/10/18 03/10/18 03/10/18 07:11 07:13 07:17 Temperature 98.2 F Pulse Rate 70 70 Respiratory 18 Rate Blood Pressure 135/92 H 141/81 O2 Sat by Pulse 98 Oximetry Mental Status: Alert & Oriented x3 Neuro: WNL Heart: WNL Lungs: WNL (medical clearance on chart) - {Optional Preform as Required} Other Pertinent Findings: pin sites clean and dry, fingers stiff. 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 Patient counseled on the risks of addiction, physical or psychological dependence, and overdose associated with opioid drugs and the danger of taking opioid drugs with alcohol and other central nervous system depressants, and cautioned patient on storage and disposal. - Impression Impression: 67F s/p exfix right wrist for removal of exfix Pt. Evaluated Today:Candidate for Anesthesia & Procedure: Yes - Date & Time Date: 03/10/18 Time: 07:30 Short Stay Discharge - Short Stay Discharge Admitting Diagnosis/Reason for Visit: S52.501A,S62.224A Disposition: HOME/ ROUTINE Referrals: Liban Romero MD [Primary Care Provider] - Past Patient History - Tetanus Immunizations Tetanus Immunization: Unknown - Past Medical History & Family History Past Medical History?: Yes - Past Social History Smoking Status: Smoker Currrent Status Unknown - CARDIAC Hx Cardiac Disorders: Yes Hx Hypertension: Yes - PULMONARY Hx Respiratory Disorders: No Hx Sleep Apnea: Yes - NEUROLOGICAL Hx Neurological Disorder: No - HEENT Hx HEENT Problems: No - RENAL Hx Chronic Kidney Disease: No - ENDOCRINE/METABOLIC Hx Endocrine Disorders: No - HEMATOLOGICAL/ONCOLOGICAL Hx Blood Disorders: No Hx Blood Transfusions: No - INTEGUMENTARY Hx Dermatological Problems: No - MUSCULOSKELETAL/RHEUMATOLOGICAL Hx Musculoskeletal Disorders: No Hx Arthritis: Yes Hx Falls: Yes (fell at home) - GASTROINTESTINAL Hx Gall Bladder Disease: Yes - GENITOURINARY/GYNECOLOGICAL Hx Genitourinary Disorders: No Other/Comment: hysterectomy - PSYCHIATRIC Hx Emotional Abuse: No Hx Physical Abuse: No - SURGICAL HISTORY Hx Surgeries: Yes Hx Cholecystectomy: Yes Hx Hysterectomy: Yes ([facility]) Other/Comment: Lipoma (back) fx right arm - ANESTHESIA Hx Anesthesia: Yes Hx Anesthesia Reactions: No Hx Malignant Hyperthermia: No Has any member of the family had a problem w/ anesthesia?: No
[2018-03-10] MEDS ORDERED: Bacitracin Ointment 30 GM TUBE ONE (07:40)
[2018-03-10] MEDS ORDERED: Absorbable Gelatin Sponge Size 12-7 ONE (07:40)
[2018-03-10] MEDS ORDERED: Bupivacaine HCl 0.5% PF (30 ml) Inj ONE (07:40)
[2018-03-10] MEDS ORDERED: Thrombin Topical 5,000 Int Units Spray Kit ONE (07:41)
[2018-03-10] MEDS ORDERED: Lactated Ringer's 1,000 ML IV ONE (07:45)
[2018-03-10] MEDS ORDERED: Oxycodone/Acetaminophen 5/325 mg Tab PO PRN (09:05)
[2018-03-10] MEDS ORDERED: HYDROmorphone 1 mg/ml ISec ONE ×3 (09:08→09:37)
[2018-03-10] MEDS: HYDROmorphone 0.5 mg/0.5 ml ISec IVP PRN ×3 (09:10→09:40)
[2018-03-10 10:09] VITALS: RESP 18
--- NOTE | 2018-03-10 12:16 | RAD ---
Date of service: 03/10/2018 PROCEDURE: Right Wrist Radiographs. HISTORY: s/p ex fix removal COMPARISON: None. FINDINGS: BONES: Healing fractures of the distal radius and ulna. Alignment of major fracture fragments. JOINTS: Normal. No dislocation. SOFT TISSUES: Normal. OTHER FINDINGS: None. IMPRESSION: Expected postoperative findings following removal of orthopedic hardware. No acute findings
[2018-03-10 13:18] VITALS: BP 115/76; PULSE 72; TEMP 98; O2SAT 97
--- NOTE | 2018-03-10 14:13 | RAD ---
Date of service: 03/10/2018 PROCEDURE: Fluoroscopy up to 1 hr. HISTORY: COMPARISON: None TECHNIQUE: Standard protocol for this study/examination. FINDINGS: Total fluoroscopic time (continuous mode) utilized during the procedure 10.6 (seconds). Total exam DLP: 0.13 (mGy) IMPRESSION: Submitted images from the current procedure: 4.0
--- NOTE | 2018-03-10 16:48 | PCM.SURG1 ---
Surgeon's Initial Post Op Note - Surgeon's Notes Surgeon: Gianni Restoration Officer: mark Haas Type of Anesthesia: General Endo Anesthesia Administered By: dr Mckee Pre-Operative Diagnosis: Healed distal radius fx with buried hardware/external fixator applx. intrinsic contractures from pt non compliance R hand Operative Findings: as above Post-Operative Diagnosis: as above Operation Performed: Hardware removal (deep). removal external fixator. manipulation wrist under anaesthesia. manipulation fingers under anaesthesia Specimen/Specimens Removed: external fixator. fixation pins Estimated Blood Loss: EBL {In ML}: 5 Blood Products Given: N/A Drains Used: No Drains Post-Op Condition: Good Date of Surgery/Procedure: 03/10/18 Time of Surgery/Procedure: 08:25 (time in room-7:45)
--- NOTE | 2018-03-13 01:44 | OP ---
Copied To: Ken Betancur MD Attending MD: Ken Betancur MD PROCEDURE DATE: 03/10/2018 PREOPERATIVE DIAGNOSES: 1. Status post simple closed reduction and percutaneous pin fixation of displaced distal radius fracture and application of external fixator. 2. Intrinsic contracture of the right hand secondary to the patient's lack of compliance with the postoperative regimen in terms of moving her fingers and being compliant with physical therapy which had been started appropriately and which regimen was prescribed to the patient through her culturally competent translators, her children at every office visit. SURGEON: Ken Betancur MD FIRST BREAKER FEEDER: THUY Barr TYPE OF ANESTHESIA: General endotracheal anesthesia. COMPLICATIONS: None. DRAINS: None. OPERATIVE INDICATIONS: Rochelle Murphy is a 67-year-old woman who is status post distal radius fracture for which she underwent successful closed reduction, percutaneous pin fixation, and application of external fixator. Patient presents at this point in time with an extensor contracture of her fingers and for hardware removal. Pros, cons, risks, and benefits of same were discussed and possibility of mechanical failure, infection, thromboembolic disease, secondary or tertiary surgery were discussed. The concept that the patient is noncompliant since the postoperative regimen was discussed in terms of movement of her fingers and the concept that she may need to go to a hand surgeon for intrinsic ways were discussed. OPERATIVE PROCEDURE: After having obtained informed consent in the above fashion, after having identified the side, site, and procedure, and a critical pause/time-out, after the satisfactory induction of the anesthetic, the patient identified as Rochelle Murphy in the supine position with all bony prominences well padded, the right upper extremity was prepped and free draped in the usual fashion for extremity surgery. Under the surgeon's direction, the fluoroscope was positioned, video images were generated, and therapeutic decisions were made therefrom. The fracture was found to be healed and the position of the deep buried hardware was identified. Again, under the surgeon's direction, the fluoroscope was positioned, video images were generated, and therapeutic decisions were made therefrom. A skin incision was accomplished using #11 blade and taking great care to dissect with a hemostat in the direction of the superficial sensory branch of the radial nerve, the pins were removed. Wound was thoroughly irrigated and all the pins were removed. This having been accomplished, the wound was thoroughly irrigated. This having been accomplished, the attention was turned to the external fixator. The external fixator bar had been removed and its bicortical pin was removed as well. At this point in time, the wound was thoroughly irrigated. Closure was in layers with interrupted Vicryl and nylon. Attention was turned to the hand. The intrinsic contractures were manipulated. Great care was placed from the MCP joint, PIP joint, DIP joint sequential. The manipulation having been accomplished, compression dressing with the wrist in flexion and with the PIP, MCP, and DIP joints, the flexion is applied as well as a static splint to assist in the elimination of the contracture. The patient will be seen on Saturday and the splint will be removed and the patient is to begin physical therapy beginning tomorrow. Ken Betancur MD
== END 2018-03-10 13:00 | disposition home or self-care (01) ==
LOC: H.OPSURG 06:27
PROVIDERS: ATTEND Orthopaedic Surgery
DX: S52.501A Unspecified fracture of the lower end of right radius, initial encounter for closed fracture (principal); S62.22 Rolando's fracture; X58.XXXA Exposure to other specified factors, initial encounter; I10 Essential (primary) hypertension; Z87.891 Personal history of nicotine dependence; M19.90 Unspecified osteoarthritis, unspecified site; Z91.19 Patient's noncompliance with other medical treatment and regimen; Z90.710 Acquired absence of both cervix and uterus; S52.601A Unspecified fracture of lower end of right ulna, initial encounter for closed fracture
CPT/HCPCS: 20690; 20694; 73110; 88304; J0330; J0690; J1170; J2001; J2370; J2405; J2704; J3010; J7120